=== PATIENT | male | born 1950 | race Caucasian/White ===

== ENCOUNTER 2021-12-18 20:37 | Inpatient (IN) | payer BC ==
[~2021-12-18] VITALS: Ht 177.8 cm; Wt 83.9 kg
[2021-12-18 20:51] VITALS: BP_SYST 143
--- NOTE | 2021-12-18 20:56 | NUR ---
BIBA C/O MID STERNAL CHEST PAIN RADIATES TO JAW. PER MEDIC REPORT PT TOOK NITRO PRIOR TO 911 ARRIVAL. PT DENIES SOB, HE STATED THAT PAIN SUBSIDED AT THIS TIME. PT WAS GIVEN ASA 324MG ON FIELD PMH:SC IN 2011, HTN, HYPERLIPIDEMIA PT AAOX4, NOT IN ANY DISTRESS AT THIS TIME. PENDING MD LOPEZ
--- NOTE | 2021-12-18 21:00 | NUR ---
ROBERTO CARLOS Cheatham at bedside examining patient. Addendum: 12/18/21 at 2354 by [email or web address] MD Morgan
[2021-12-18 21:27] LABS: BASOPHILS % (AUTO) 1.1 % (0.0-2.0); EOSINOPHILS # (AUTO) 0.4 K/uL (0.0-0.4); EOSINOPHILS % (AUTO) 9.5 % (0.0-4.0); HEMATOCRIT 36.4 % (36-54); LYMPHOCYTES # (AUTO) 1.1 K/uL (1.0-5.5); LYMPHOCYTES % (AUTO) 26.4 % (20.5-51.5); MEAN CORPUSCULAR VOLUME 94 fL (79.0-98.0); MONOCYTES # (AUTO) 0.5 K/uL (0.0-1.0); MONOCYTES % (AUTO) 12.5 % (1.7-9.3); NEUTROPHILS % (AUTO) 50.5 % (40.0-70.0); PLATELET COUNT (AUTO) 146 K/uL (130-430); RED BLOOD CELL COUNT(AUTO) 3.89 MIL/uL (4.2-6.2); RED CELL DISTRIBUTION WIDTH 12.9 % (9.0-15.0)
[2021-12-18 21:29] LABS: ANION GAP 6 (5-15); CALCIUM 8.8 mg/dL (8.4-11.0); CHLORIDE 98 mmol/L (98-107); CREATININE 0.86 mg/dL (0.55-1.30); GLUCOSE 91 mg/dL (70-99); POTASSIUM 3.4 mmol/L (3.5-5.1); UREA NITROGEN, BLOOD 11 mg/dL (8-21)
[2021-12-18 21:38] LABS: ALANINE AMINOTRANSFERASE 25 U/L (12-78); ALBUMIN 3.4 g/dL (3.4-4.8); ASPARTATE AMINOTRANSFERASE 21 U/L (10-37); TOTAL BILIRUBIN 0.4 mg/dL (0.0-1.0)
--- NOTE | 2021-12-19 00:04 | NUR ---
Denies any CP/discomfort at this time. Resting comfortably in bed, VSS. Breathing adequately on RA. at bedside.
--- NOTE | 2021-12-19 02:25 | NUR ---
Admit bed requested Patient will be admitted to care of Dr. Chisholm. Admitted to TELE unit. Diagnosis: CP Inpatient (Yes or No) Y Covid Status : PENDING From Home (Yes or if No enter name of facility) Y Med Rec Completed (Yes of No) :
--- NOTE | 2021-12-19 02:27 | NUR ---
Covid JESSICA swab collected and sent to lab.
--- NOTE | 2021-12-19 02:36 | NUR ---
COVID TEST OBTAINED LABLED AND SENT TO LAB
--- NOTE | 2021-12-19 03:52 | NUR ---
Note urszula in ED - 12/19/21 at 0353 by [email or web address] Patient does not wish to proceed with medical care recommended by MD Anaya. Patient given information related to possible complications, up to and including , which could occur as a result of leaving hospital at this time. Patient verbalizes understanding of risks involved leaving against medical advice. Patient has signed AMA form.
--- NOTE | 2021-12-19 04:27 | NUR ---
Pt resting comfortably, easy to arouse. No signs of distress/discomfort. VSS.
[2021-12-19] MEDS ORDERED: ACETAMINOPHEN 325 MG TABLET PO PRN ×2 (06:30→07:45)
[2021-12-19] MEDS ORDERED: HYDROcodone/ACETAMIN 10-325 MG TAB PO PRN (06:30)
[2021-12-19] MEDS ORDERED: NALOXONE HCL 0.4 MG/ML AMP (NARCAN) IVP PRN ×2 (06:30)
[2021-12-19] MEDS ORDERED: ONDANSETRON HCL 4 MG/2 ML VIAL IVP PRN (06:30)
[2021-12-19] MEDS ORDERED: HYDROcodone/ACETAMIN 5-325 MG TAB (NORCO/ VICODIN) PO PRN (06:30)
--- NOTE | 2021-12-19 07:06 | NUR ---
REPORT RECEIVED FROM AL BAUMANN FOR CONTINUING CARE
--- NOTE | 2021-12-19 07:10 | NUR ---
PT IS RESTING IN GURNEY, AAOX4, NO DISTRESS NOTED, VSS ON PRICING LEAD
[2021-12-19] MEDS ORDERED: ATEN-41 PO (07:25)
[2021-12-19] MEDS ORDERED: FAMO20TA8 PO (07:25)
[2021-12-19] MEDS ORDERED: LISI1TAB55 PO (07:25)
--- NOTE | 2021-12-19 07:26 | NUR ---
Admit bed requested Patient will be admitted to care of . Admitted to TELE unit. Diagnosis CHEST PAIN Inpatient (Yes or No) YES Observation (Yes or No) NO Orientation concerns or request close to nursing station (Yes or No) NO Covid Status NEGATIVE On vent or bipap NO Isolation requirements NO Needs a sitter NO From Home (Yes or if No enter name of facility) YES Requires Dialysis (Yes or No) NO Med Rec Completed (Yes of No) YES
--- NOTE | 2021-12-19 08:22 | NUR ---
BREAKFAST TRAY PROVIDED TO PT
--- NOTE | 2021-12-19 08:25 | NUR ---
LAB AT THE BEDSIDE FOR BLOOD DRAW
[2021-12-19 08:44] LABS: BASOPHILS # (AUTO) 0.1 K/uL (0.0-0.2); BASOPHILS % (AUTO) 1.2 % (0.0-2.0); EOSINOPHILS # (AUTO) 0.3 K/uL (0.0-0.4); EOSINOPHILS % (AUTO) 7.4 % (0.0-4.0); HEMATOCRIT 37.1 % (36-54); LYMPHOCYTES # (AUTO) 0.8 K/uL (1.0-5.5); LYMPHOCYTES % (AUTO) 18.3 % (20.5-51.5); MEAN CORPUSCULAR VOLUME 94 fL (79.0-98.0); MONOCYTES # (AUTO) 0.5 K/uL (0.0-1.0); MONOCYTES % (AUTO) 10.7 % (1.7-9.3); NEUTROPHILS # (AUTO) 2.6 K/uL (1.8-7.7); NEUTROPHILS % (AUTO) 62.4 % (40.0-70.0); PLATELET COUNT (AUTO) 150 K/uL (130-430); RED BLOOD CELL COUNT(AUTO) 3.97 MIL/uL (4.2-6.2); WHITE BLOOD COUNT (AUTO) 4.2 K/uL (4.8-10.8)
[2021-12-19 09:13] LABS: ANION GAP 4 (5-15); CALCIUM 8.7 mg/dL (8.4-11.0); CHLORIDE 100 mmol/L (98-107); CREATININE 0.75 mg/dL (0.55-1.30); GLUCOSE 96 mg/dL (70-99); PHOSPHORUS 2.9 mg/dL (2.7-4.5); POTASSIUM 3.9 mmol/L (3.5-5.1); THYROID STIMULATING HORMONE 1.87 uIu/mL (0.36-3.74); UREA NITROGEN, BLOOD 9 mg/dL (8-21)
[2021-12-19 09:52] LABS: CHOLESTEROL 133 mg/dL (<200); HDL CHOLESTEROL 70 mg/dL (>45); LDL CHOLESTEROL 55 mg/dL (<100); TRIGLYCERIDES 42 mg/dL (30-150)
--- NOTE | 2021-12-19 10:19 | NUR ---
CONSULTATION PAGED REASON FOR CONSULTATION:CHEST PAIN WAS CONSULT CALLED?Y PERSON WHO WAS NOTIFIED:DONNY CONSULTING PHYSICIAN:KRISTIE VALERIO NURSE MIDWIFE/CLINICAL INSTRUCTOR SPECIALTY:CARDIO NURSE MIDWIFE/CLINICAL INSTRUCTOR PHONE NUMBER:[phone] REQUESTING PHYSICIAN:MARIANNE VALERIO
[2021-12-19 10:24] VITALS: BP_SYST 143
--- NOTE | 2021-12-19 10:25 | NUR ---
Patient will be admitted to care of DR. RODRÍGUEZ. Admitted to TELE unit. Will go to room 129B. Belongings list completed. Complete and up to date summary report printed. SBAR report to be given at bedside with opportunity for questions.
[2021-12-19] MEDS: NORMAL SALINE 5 ML DISP.SYRIN IVF SCH ×2 (14:00→22:14)
[2021-12-19 16:50] VITALS: BP_SYST 138
--- NOTE | 2021-12-19 19:30 | NUR ---
Opening note Received report from day shift. Pt is awake walking around in room. No s/s of acute distress. No c/o of chest pain. IV site intact and saline lock. Fall and safety precautions in place with bed in lowest position and call light within reach
[2021-12-19 20:00] VITALS: BP_SYST 136
[2021-12-20] VITALS: BP_SYST 132
--- NOTE | 2021-12-20 00:15 | NUR ---
Rounds Pt lying in bed, eyes closed. No s/s of acute distress. VSS. Fall and safety checks in place
[2021-12-20 06:37] LABS: BASOPHILS # (AUTO) 0.1 K/uL (0.0-0.2); BASOPHILS % (AUTO) 1.1 % (0.0-2.0); EOSINOPHILS # (AUTO) 0.4 K/uL (0.0-0.4); EOSINOPHILS % (AUTO) 9.8 % (0.0-4.0); HEMATOCRIT 37.3 % (36-54); LYMPHOCYTES # (AUTO) 1.1 K/uL (1.0-5.5); LYMPHOCYTES % (AUTO) 23.9 % (20.5-51.5); MEAN CORPUSCULAR VOLUME 94 fL (79.0-98.0); MONOCYTES # (AUTO) 0.6 K/uL (0.0-1.0); MONOCYTES % (AUTO) 12.8 % (1.7-9.3); NEUTROPHILS # (AUTO) 2.4 K/uL (1.8-7.7); NEUTROPHILS % (AUTO) 52.4 % (40.0-70.0); PLATELET COUNT (AUTO) 156 K/uL (130-430); RED BLOOD CELL COUNT(AUTO) 3.97 MIL/uL (4.2-6.2); RED CELL DISTRIBUTION WIDTH 13.3 % (9.0-15.0); WHITE BLOOD COUNT (AUTO) 4.5 K/uL (4.8-10.8)
[2021-12-20 06:44] LABS: CALCIUM 8.9 mg/dL (8.4-11.0); CREATININE 0.85 mg/dL (0.55-1.30); GLUCOSE 90 mg/dL (70-99); POTASSIUM 3.5 mmol/L (3.5-5.1); UREA NITROGEN, BLOOD 12 mg/dL (8-21)
[2021-12-20 07:06] LABS: ANION GAP 8 (5-15); CHLORIDE 101 mmol/L (98-107)
--- NOTE | 2021-12-20 07:28 | NUR ---
Closing note Pt lying in bed, eyes closed. No s/s of acute distress. No c/o of chest pain. IV site intact and saline lock. All needs met throughout shift. Fall and safety precautions in place with bed in lowest position and call light within reach
[2021-12-20 08:00] VITALS: BP_SYST 143
[2021-12-20] MEDS ORDERED: ATENOLOL 25 MG TABLET(TENORMIN) PO ONE (10:15)
[2021-12-20] MEDS ORDERED: lisinopriL 20 MG TABLET PO ONE (10:30)
[2021-12-20] MEDS ORDERED: HYDROCHLOROTHIAZIDE 12.5 MG CAPSULE (HCTZ) PO ONE (10:30)
[2021-12-20] MEDS: NORMAL SALINE 5 ML DISP.SYRIN IVF SCH (10:44)
[2021-12-20 11:08] VITALS: BP_SYST 143
[2021-12-21] MEDS ORDERED: lisinopriL 20 MG TABLET PO SCH (09:00)
[2021-12-21] MEDS ORDERED: HYDROCHLOROTHIAZIDE 12.5 MG CAPSULE (HCTZ) PO SCH (09:00)
== END 2021-12-20 12:45 | disposition home or self-care (01) | DRG 313 ==
LOC: SED 20:37 → STU 12-19 02:23
PROVIDERS: ADMIT Preventive Medicine Preventive Medicine/Occupational Environmental Medicine; ATTEND Preventive Medicine Preventive Medicine/Occupational Environmental Medicine
DX: R07.9 Chest pain, unspecified (principal); J80 Acute respiratory distress syndrome; E87.1 Hypo-osmolality and hyponatremia; E87.6 Hypokalemia; D64.9 Anemia, unspecified; Z20.822 Contact with and (suspected) exposure to COVID-19; I10 Essential (primary) hypertension; E78.5 Hyperlipidemia, unspecified; D72.819 Decreased white blood cell count, unspecified; I25.2 Old myocardial infarction
CPT/HCPCS: 36415; 71045; 80048; 80053; 80061; 83735; 84100; 84443; 84484; 85025; 93005; 93306; 99291; G0378